=== PATIENT | female | born 1995 | race African-American/Black ===

== ENCOUNTER 2017-10-25 13:33 | Emergency (ER) | payer SELFPAY ==
[~2017-10-25] VITALS: Ht 165.1 cm; Wt 58.1 kg
[2017-10-25 14:23] LABS: BILIRUBIN,URINE NEGATIVE (NEG); CLARITY,URINE CLEAR; NITRITE,URINE NEGATIVE (NEG); PH,URINE 6.5; PROTEIN,URINE NEGATIVE (NEG-TRACE); UROBILINOGEN,URINE 0.2 mg/dL (0.2 mg/dL)
[2017-10-25] MEDS: IPRATRPIUM/ALBUTEROL 0.5/2.5MG 3 ML NEBU. NEB ONE (14:26)
[2017-10-25 14:27] LABS: BASO % 0 % (0-3); EOS % 0 % (0-3); HEMATOCRIT 42.5 % (36.0-47.0); HEMOGLOBIN 14.3 g/dL (12.0-15.5); LYMPH # 3.5 x10^3/uL (1.0-4.8); LYMPH % 35 % (24-48); MEAN CORPUSCULAR HEMOGLOBIN 30 pg (25-35); MEAN CORPUSCULAR HGB CONC 34 g/dL (31-37); MEAN CORPUSCULAR VOLUME 88 fL (79-100); MONO # 1.1 x10^3/uL (0.0-1.1); MONO % 11 % (0-9); NEUT # 5.4 x10^3uL (1.8-7.7); NEUT % 54 % (31-73); PLATELET COUNT 306 x10^3/uL (140-400); RED BLOOD COUNT 4.81 x10^6/uL (3.50-5.40); RED CELL DISTRIBUTION WIDTH 14.3 % (11.5-14.5); WHITE BLOOD COUNT 10.1 x10^3/uL (4.0-11.0)
[2017-10-25] MEDS: IV NORMAL SALINE 1000ML BAG 1,000 ML IV ONE (14:34)
[2017-10-25 14:37] LABS: BACTERIA,URINE FEW /HPF (0-FEW); COLOR,URINE STRAW; RBC,URINE 0 /HPF (0-2); SQUAMOUS EPITHELIAL CELL,UR FEW /LPF; WBC,URINE RARE /HPF (0-4)
[2017-10-25 14:39] LABS: CALCIUM 9.4 mg/dL (8.5-10.1); GFR 83.1; MAGNESIUM 1.7 mg/dL (1.8-2.4)
[2017-10-25 14:41] LABS: POTASSIUM 2.8 mmol/L (3.5-5.1)
--- NOTE | 2017-10-25 15:16 | EKG ---
[facility] [address] [place] [id number] Test Date: 2017-10-25 Test Time: 13:41:05 Pat Name: ANIL LEON Department: Room: Gender: F Balance Recesser: : 1995 Requested By: LURDES WASHBURN Order Number: [id number] Reading MD: Travis Sanders MD Measurements Intervals [place] Rate: 122 P: 139 IA: 110 QRS: 95 QRSD: 84 T: -6 QT: 354 QTc: 513 Interpretive Statements SINUS TACHYCARDIA Electronically Signed On 10-27-2017 12:09:14 CDT by Travis Sanders MD
[2017-10-25 15:46] LABS: AMPHETAMINE/METHAMPHETAMINE POS (NEG); BARBITURATES NEG (NEG); BENZODIAZEPINES NEG (NEG); CANNABINOIDS POS (NEG); COCAINE NEG (NEG); METHADONE NEG (NEG); OPIATES NEG (NEG); PHENCYCLIDINE NEG (NEG)
[2017-10-25] MEDS: POTASSIUM CHLORIDE 20 MEQ/15 ML ORAL LIQUID. PO ONE ×2 (15:50→17:44)
--- NOTE | 2017-10-25 16:02 | RAD ---
PORTABLE CHEST 1V Clinical indications: CHEST PAIN, DYSPNEA COMPARISON: None available. Findings: No acute lung infiltrate or pleural effusion or pulmonary edema or lung mass or pneumothorax is seen. The heart size, pulmonary vasculature, mediastinum and both clifton are unremarkable. Impression: No acute radiographic abnormality is seen. Electronically signed by: Reji Mo MD (10/25/2017 3:59 PM) [facility]
[2017-10-25] MEDS: MAGNESIUM SULFATE 2GM 50 ML IV ONE (16:40)
[2017-10-25 17:10] VITALS: BP 123/77
--- NOTE | 2017-10-25 17:27 | PHYS DOC ---
Past Medical History Past Medical History: Asthma Past Surgical History: Other Additional Past Surgical Histo: LEEP Additional Information: 0.75 PPD Alcohol Use: Occasionally Drug Use: None Adult General Chief Complaint Chief Complaint: ASTHMA HPI HPI Patient is a 21 year old female who presents with shortness of breath and fast heart beat. Patient states she began to have symptoms of palpitations and feeling that her heart was beating fast earlier today. This did cause her to have some anxiety and feel short of breath. She does have a prior history of asthma but she has not been wheezing. She currently does not have inhalers at home to use. She has not had a cough or fever. She has otherwise been at baseline health prior to onset of symptoms which was earlier this morning. The patient denies illicit drug use. Her last menstrual period was a week ago. She denies urinary symptoms or abdominal pain. Review of Systems Review of Systems Constitutional: Denies fever or chills Eyes: Denies change in visual acuity HENT: Denies nasal congestion Respiratory: Denies cough Cardiovascular: No additional information not addressed GI: Denies abdominal pain, nausea : Denies dysuria Musculoskeletal: Denies back pain Integument: Denies rash or skin lesions All other systems were reviewed and found to be within normal limits, except as documented in this note. Current Medications Current Medications Current Medications Medications (Trade) Dose Ordered Sig/Bella Start Time Stop Time Status Last Admin Dose Admin Albuterol/ Ipratropium (Duoneb) 3 ml 1X ONCE 10/25/17 14:00 10/25/17 14:01 DC 10/25/17 14:26 3 ML Lorazepam (Ativan) 1 mg 1X ONCE 10/25/17 15:30 10/25/17 15:31 DC 10/25/17 15:51 1 MG Magnesium Sulfate 50 ml @ 25 mls/hr 1X ONCE 10/25/17 16:00 10/25/17 17:59 10/25/17 16:40 25 MLS/HR Potassium Chloride (KCl Oral Soln) 40 meq 1X ONCE 10/25/17 17:15 10/25/17 17:16 DC Sodium Chloride 1,000 ml @ 1,000 mls/hr 1X ONCE 10/25/17 14:30 10/25/17 15:29 DC 10/25/17 14:34 1,000 MLS/HR Allergies Allergies Allergies Coded Allergies Type Severity Reaction Last Updated Verified No Known Drug Allergies 03/21/13 No Physical Exam Physical Exam Constitutional: Well developed, well nourished, no acute distress, non-toxic appearance. [] HENT: Normocephalic, atraumatic, bilateral external ears normal, oropharynx moist, no oral exudates, nose normal. [] Eyes: PERRLA, EOMI, conjunctiva normal, no discharge. [] Neck: Normal range of motion, no tenderness, supple, no stridor. [] Cardiovascular:Heart rate regular rhythm, no murmur [] Lungs & Thorax: Bilateral breath sounds clear to auscultation [] Abdomen: Bowel sounds normal, soft, no tenderness, no masses, no pulsatile masses. [] Skin: Warm, dry, no erythema, no rash. [] Back: No tenderness, no CVA tenderness. [] Extremities: No tenderness, no cyanosis, no clubbing, ROM intact, no edema. [] Neurologic: Alert and oriented X 3, normal motor function, normal sensory function, no focal deficits noted. [] Psychologic: Affect normal, judgement normal, mood normal. [] Current Patient Data Vital Signs Vital Signs Date Time Temp Pulse Resp B/P (MAP) Pulse Ox O2 Delivery O2 Flow Rate FiO2 10/25/17 14:27 Room Air 10/25/17 13:37 98.3 117 24 163/88 (113) 100 98.3 Lab Values Laboratory Tests Test 10/25/17 14:10 10/25/17 14:14 10/25/17 14:16 Urine Collection Type Void Urine Color Straw Urine Clarity Clear Urine pH 6.5 Urine Specific Starks <=1.005 Urine Protein Negative mg/dL (NEG-TRACE) Urine Glucose (UA) Negative mg/dL (NEG) Urine Ketones (Stick) Negative mg/dL (NEG) Urine Blood Negative (NEG) Urine Nitrite Negative (NEG) Urine Bilirubin Negative (NEG) Urine Urobilinogen Dipstick 0.2 mg/dL (0.2 mg/dL) Urine Leukocyte Esterase Negative (NEG) Urine RBC 0 /HPF (0-2) Urine WBC Rare /HPF (0-4) Urine Squamous Epithelial Cells Few /LPF Urine Bacteria Few /HPF (0-FEW) Urine Opiates Screen Neg (NEG) Urine Methadone Screen Neg (NEG) Urine Barbiturates Neg (NEG) Urine Phencyclidine Screen Neg (NEG) Urine Amphetamine/Methamphetamine Pos (NEG) Urine Benzodiazepines Screen Neg (NEG) Urine Cocaine Screen Neg (NEG) Urine Cannabinoids Screen Pos (NEG) Urine Ethyl Alcohol Pos (NEG) POC Urine HCG, Qualitative Hcg negative (Negative) White Blood Count 10.1 x10^3/uL (4.0-11.0) Red Blood Count 4.81 x10^6/uL (3.50-5.40) Hemoglobin 14.3 g/dL (12.0-15.5) Hematocrit 42.5 % (36.0-47.0) Mean Corpuscular Volume 88 fL (79-100) Mean Corpuscular Hemoglobin 30 pg (25-35) Mean Corpuscular Hemoglobin Concent 34 g/dL (31-37) Red Cell Distribution Width 14.3 % (11.5-14.5) Platelet Count 306 x10^3/uL (140-400) Neutrophils (%) (Auto) 54 % (31-73) Lymphocytes (%) (Auto) 35 % (24-48) Monocytes (%) (Auto) 11 % (0-9) H Eosinophils (%) (Auto) 0 % (0-3) Basophils (%) (Auto) 0 % (0-3) Neutrophils # (Auto) 5.4 x10^3uL (1.8-7.7) Lymphocytes # (Auto) 3.5 x10^3/uL (1.0-4.8) Monocytes # (Auto) 1.1 x10^3/uL (0.0-1.1) Eosinophils # (Auto) 0.0 x10^3/uL (0.0-0.7) Basophils # (Auto) 0.0 x10^3/uL (0.0-0.2) D-Dimer (Siri) < 0.27 ug/mlFEU Sodium Level 138 mmol/L (136-145) Potassium Level 2.8 mmol/L (3.5-5.1) *L Chloride Level 99 mmol/L (98-107) Carbon Dioxide Level 21 mmol/L (21-32) Anion Gap 18 (6-14) H Blood Urea Nitrogen 7 mg/dL (7-20) Creatinine 1.0 mg/dL (0.6-1.0) Estimated GFR (Cockcroft-Gault) 83.1 Glucose Level 88 mg/dL (70-99) Calcium Level 9.4 mg/dL (8.5-10.1) Magnesium Level 1.7 mg/dL (1.8-2.4) L Laboratory Tests 10/25/17 14:16 Laboratory Tests 10/25/17 14:16 EKG EKG Sinus Tachy, no STEMI Interpretation Time: 13:45 Radiology/Procedures Radiology/Procedures No acute findings on CXR Course & Med Decision Making Course & Med Decision Making Pertinent Labs and Imaging studies reviewed. (See chart for details) Patient was evaluated in the emergency department for some dyspnea symptoms. She had good air movement in all voss and no wheezes and her chest x-ray was normal. She was given an albuterol treatment because of her history of asthma although this did not significantly change her symptoms. She was tachycardic with a heart rate in the 120s and 130s on arrival. She was given 1 L of fluid which did substantially reduce her heart rate into the low 100s. She was also given 2 doses of Ativan during the ER course which did resolve her tachycardia. Her lab panel was remarkable for low magnesium and low potassium. These were both repleted in the emergency department. The patient was noted to have positive urine drug screen for methamphetamine despite that she denied this earlier in the visit. Plan is for discharge to home. Patient is feeling much improved. She is accompanied by friends who can drive her home today. Dragon Disclaimer Dragon Disclaimer This electronic medical record was generated, in whole or in part, using a voice recognition dictation system. Departure Departure Referrals: GENTRY BELL MD (PCP) LURDES WASHBURN DO Oct 25, 2017 17:27
== END 2017-10-25 18:14 | disposition home or self-care (01) ==
LOC: ER 13:33
DX: R06.02 Shortness of breath (principal); R00.2 Palpitations; J45.909 Unspecified asthma, uncomplicated; F17.200 Nicotine dependence, unspecified, uncomplicated; F41.9 Anxiety disorder, unspecified
CPT/HCPCS: 36415; 71045; 80048; 80307; 81001; 81025; 83735; 85025; 85379; 93005; 94640; 96365; 96375; 96376; 99285; J2060; J3475; J7030; J7620; G0479

== ENCOUNTER 2018-07-07 08:59 | Emergency (ER) | payer OTHER ==
[~2018-07-07] VITALS: Ht 165.1 cm; Wt 56.7 kg
[2018-07-07 09:07] VITALS: BP 138/76
[2018-07-07] MEDS ORDERED: SULF1TAB24 PO (09:20)
--- NOTE | 2018-07-07 09:20 | PHYS DOC ---
Past Medical History Past Medical History: No Pertinent History (TRAN RECINOS APRN) Past Surgical History: Other Additional Past Surgical Histo: CERVICAL CA, LEEP (TRAN RECINOS APRN) Additional Information: 1/2 PACK A DAY Alcohol Use: Rarely Drug Use: None (TRAN RECINOS APRN) Adult General Chief Complaint Chief Complaint: INSECT BITE HPI HPI Patient is a 22 year old female who presents to the ED complaining of what she believes is a spider bite on the right forearm that she noted on last week. Patient denies any drainage from the area. Denies any fever. (TRAN RECINOS APRN) Review of Systems Review of Systems Constitutional: Denies fever or chills [] Musculoskeletal: Denies back pain or joint pain [] Integument: spider bite on the right forearm Neurologic: Denies headache, focal weakness or sensory changes [] All other systems were reviewed and found to be within normal limits, except as documented in this note. (TRAN RECINOS APRN) Current Medications Current Medications Current Medications Medications (Trade) Dose Ordered Sig/Bella Start Time Stop Time Status Last Admin Dose Admin Diphtheria/ Tetanus/Acell Pertussis (Boostrix) 0.5 ml ONCE ONCE 07/07/18 09:30 07/07/18 09:31 DC 07/07/18 09:25 0.5 ML (BEVERLY HOFFMAN MD) Allergies Allergies Allergies Coded Allergies Type Severity Reaction Last Updated Verified No Known Drug Allergies 03/21/13 No (BEVERLY HOFFMAN MD) Physical Exam Physical Exam Constitutional: Well developed, well nourished, no acute distress, non-toxic appearance. [] Skin: Does aspect of the right proximal forearm with an indurated area approximately 1 x 1 cm. The area is firm and tender to touch warm with slight erythema. No fluctuance. There is a scab in the middle of the area. Back: No tenderness, no CVA tenderness. [] Extremities: No tenderness, no cyanosis, no clubbing, ROM intact, no edema. [] Neurologic: Alert and oriented X 3, normal motor function, normal sensory function, no focal deficits noted. [] Psychologic: Affect normal, judgement normal, mood normal. [] (TRAN RECINOS APRN) Current Patient Data Vital Signs Vital Signs Date Time Temp Pulse Resp B/P (MAP) Pulse Ox O2 Delivery O2 Flow Rate FiO2 07/07/18 09:07 98.0 88 16 138/76 (96) 99 Room Air 98.0 (BEVERLY HOFFMAN MD) EKG EKG [] (TRAN RECINOS APRN) Radiology/Procedures Radiology/Procedures [] (TRAN RECINOS APRN) Course & Med Decision Making Course & Med Decision Making Pertinent Labs and Imaging studies reviewed. (See chart for details) This is a 22-year-old female patient presenting to the ED today with an abscess of the right forearm, abscess not ready to drain. Will be discharged with Bactrim. Instructed to keep the area clean and dry. Tylenol or Motrin for pain or fever. Tetanus updated. (TRAN RECINOS APRN) Course & Med Decision Making This patient was seen by an GRACE. I did not see or treat the patient unless otherwise specified. (BEVERLY HOFFMAN MD) Dragon Disclaimer Dragon Disclaimer This electronic medical record was generated, in whole or in part, using a voice recognition dictation system. (TRAN RECINOS APRN) Departure Departure Impression: Primary Impression: Abscess of forearm, right Disposition: HOME, SELF-CARE Condition: STABLE Referrals: EGNTRY BELL MD (PCP) Follow-up in 1-2 weeks Patient Instructions: Abscess Additional Instructions: You were seen in the emergency room for an abscess of the right forearm. Keep the area clean and dry. Please apply warm compresses to the area twice a day. Follow-up with your doctor in 1-2 weeks as needed, come back to the ED at any point symptoms worsen. Scripts Sulfamethoxazole/Trimethoprim (BACTRIM DS TABLET) 1 Each Tablet 1 TAB PO BID, #20 TAB Prov: TRAN RECINOS APRN 07/07/18 TRAN RECINOS APRN July 07, 2018 09:20 BEVERLY HOFFMAN MD July 07, 2018 17:07
[2018-07-07] MEDS ORDERED: DIPHTH,PERTUSS(ACELL),TET TOX 0.5 ML DISP.SYRIN. VAX IM ONE (09:30)
== END 2018-07-07 09:29 | disposition home or self-care (01) ==
LOC: ER 08:59
DX: L02.413 Cutaneous abscess of right upper limb (principal); F17.200 Nicotine dependence, unspecified, uncomplicated; W57.XXXA Bitten or stung by nonvenomous insect and other nonvenomous arthropods, initial encounter; Y93.89 Activity, other specified; Y92.89 Other specified places as the place of occurrence of the external cause; Y99.8 Other external cause status
CPT/HCPCS: 90471; 90715; 99283

== ENCOUNTER 2018-07-21 14:40 | Emergency (ER) | payer OTHER ==
[~2018-07-21] VITALS: Ht 165.1 cm; Wt 56.7 kg
[~2018-07-21 14:40] MED LIST: SULF1TAB24 PO
[2018-07-21 15:15] VITALS: BP 126/77
--- NOTE | 2018-07-21 15:31 | PHYS DOC ---
Past Medical History Past Medical History: No Pertinent History Past Surgical History: Other Additional Past Surgical Histo: CERVICAL CA, LEEP Alcohol Use: Rarely Drug Use: None Adult General Chief Complaint Chief Complaint: SORE THROAT HPI HPI Patient is a 22 year old female presents to ED complaining of sore throat 2 days ago. Patient states that she's had a sore throat and it seems to be getting worse. States that it comes and goes. Associated symptoms include congestion. Denies throat swelling, lip swelling, tongue swelling, chest pain, shortness of breath, cough, fever, headache or neck pain. Review of Systems Review of Systems Constitutional: Denies fever or chills [] Eyes: Denies change in visual acuity, redness, or eye pain [] HENT: Complains of sore throat and congestion. [] Respiratory: Denies cough or shortness of breath [] Cardiovascular: No additional information not addressed in HPI [] GI: Denies abdominal pain, nausea, vomiting, bloody stools or diarrhea [] : Denies dysuria or hematuria [] Musculoskeletal: Denies back pain or joint pain [] Integument: Denies rash or skin lesions [] Neurologic: Denies headache, focal weakness or sensory changes [] All other systems were reviewed and found to be within normal limits, except as documented in this note. Allergies Allergies Allergies Coded Allergies Type Severity Reaction Last Updated Verified No Known Drug Allergies 03/21/13 No Physical Exam Physical Exam Constitutional: Well developed, well nourished, no acute distress, non-toxic appearance. [] HENT: Normocephalic, atraumatic, bilateral external ears normal, oropharynx moist, no oral exudates, nose normal. mild pharyngeal erythema. [] Eyes: PERRLA, EOMI, conjunctiva normal, no discharge. [] Neck: Normal range of motion, no tenderness, supple, no stridor. [] Cardiovascular:Heart rate regular rhythm, no murmur [] Lungs & Thorax: Bilateral breath sounds clear to auscultation [] Abdomen: Bowel sounds normal, soft, no tenderness, no masses, no pulsatile masses. [] Skin: Warm, dry, no erythema, no rash. [] Back: No tenderness, no CVA tenderness. [] Extremities: No tenderness, no cyanosis, no clubbing, ROM intact, no edema. [] Neurologic: Alert and oriented X 3, normal motor function, normal sensory function, no focal deficits noted. [] Psychologic: Affect normal, judgement normal, mood normal. [] Current Patient Data Vital Signs Vital Signs Date Time Temp Pulse Resp B/P (MAP) Pulse Ox O2 Delivery O2 Flow Rate FiO2 07/21/18 15:15 98.9 68 16 126/77 (93) 98 Room Air 98.9 EKG EKG [] Radiology/Procedures Radiology/Procedures [] Course & Med Decision Making Course & Med Decision Making Pertinent Labs and Imaging studies reviewed. (See chart for details) []Strep test negative. Discussed symptomatic treatment and follow-up. Provided contact information/education for follow-up and discussed reasons to return to the ED. Patient understands and agrees with plan. Dragon Disclaimer Dragon Disclaimer This electronic medical record was generated, in whole or in part, using a voice recognition dictation system. Departure Departure Impression: Primary Impression: Pharyngitis Disposition: 01 HOME, SELF-CARE Condition: STABLE Referrals: GENTRY BELL MD (PCP) Patient Instructions: Viral and Bacterial Pharyngitis Scripts Prednisone (PREDNISONE ) 10 Mg Tablet 30 MG PO DAILY for 4 Days, #12 TAB 0 Refills Prov: JEROME BOONE 07/21/18 JEROME BOONE July 21, 2018 15:31
[2018-07-21] MEDS ORDERED: PRED-220 PO (15:37)
== END 2018-07-21 15:41 | disposition home or self-care (01) ==
LOC: ER 14:40
DX: J02.9 Acute pharyngitis, unspecified (principal); R09.81 Nasal congestion
CPT/HCPCS: 87070; 87880; 99283

== ENCOUNTER 2019-01-06 10:27 | Emergency (ER) | payer SELFPAY ==
[~2019-01-06] VITALS: Ht 165.1 cm; Wt 56.7 kg
[~2019-01-06 10:27] MED LIST changes: +PRED-220 PO
[2019-01-06] MEDS ORDERED: IV NORMAL SALINE 1000ML BAG 1,000 ML IV ONE (11:00)
[2019-01-06 11:13] LABS: BASO % 0 % (0-3); EOS % 0 % (0-3); HEMATOCRIT 36.4 % (36.0-47.0); LYMPH # 1.3 x10^3/uL (1.0-4.8); LYMPH % 15 % (24-48); MEAN CORPUSCULAR HEMOGLOBIN 28 pg (25-35); MEAN CORPUSCULAR HGB CONC 33 g/dL (31-37); MEAN CORPUSCULAR VOLUME 85 fL (79-100); MONO # 0.6 x10^3/uL (0.0-1.1); MONO % 7 % (0-9); NEUT # 7.2 x10^3/uL (1.8-7.7); NEUT % 78 % (31-73); PLATELET COUNT 243 x10^3/uL (140-400); RED BLOOD COUNT 4.27 x10^6/uL (3.50-5.40); RED CELL DISTRIBUTION WIDTH 15.3 % (11.5-14.5); WHITE BLOOD COUNT 9.2 x10^3/uL (4.0-11.0)
[2019-01-06 11:21] LABS: PROTHROMBIN TIME PATIENT 12.7 SEC (11.7-14.0)
[2019-01-06 11:22] LABS: BILIRUBIN,URINE NEGATIVE (NEG); CLARITY,URINE CLEAR; COLOR,URINE YELLOW; NITRITE,URINE NEGATIVE (NEG); PROTEIN,URINE NEGATIVE (NEG-TRACE)
[2019-01-06 11:27] LABS: CALCIUM 8.9 mg/dL (8.5-10.1); CREATININE 0.8 mg/dL (0.6-1.0); GFR 105.8; POTASSIUM 3.5 mmol/L (3.5-5.1)
--- NOTE | 2019-01-06 11:29 | RAD ---
CT HEAD WO CONTRAST Clinical indications: Forehead swelling after recent sutures. COMPARISON: None available. Technique: Noncontrast axial cross sectional scanning of the head was performed. PQRS compliance Statement One or more of the following individualized dose reduction techniques were utilized for this study: 1. Automated exposure control 2. Adjustment of the mA and/or kV according to patient size 3. Use of iterative reconstruction technique Findings: No acute intracranial hemorrhage or midline shift or mass-effect or hydrocephalus or extra-axial fluid collection is seen. No focal hypodense area or sulci effacement is seen to indicate an acute infarct or edema radiographically. No skull fracture or pneumocephalus is seen. No opacification of the mastoid sinuses or the middle ear cavities or the paranasal sinuses is seen. The maxillary sinuses are not completely seen in this study. There is left forehead soft tissue swelling. There is a question of a hypodense central area. Therefore, small subcutaneous abscess is possible although difficult to determine without IV contrast. Therefore, sonography may be helpful. There is a small bubble of air consistent with a recent laceration injury which has been sutured. IMPRESSION: No acute intracranial abnormality is seen. Left forehead swelling. Possible small abscess. Recommend sonogram of the left forehead area. Electronically signed by: Reji Mo MD (01/06/2019 11:26 AM) [place] [id number]
[2019-01-06] MEDS ORDERED: MORPHINE SULFATE 4 MG/ML VIAL. IV ONE (11:30)
[2019-01-06] MEDS ORDERED: ONDANSETRON PF 4 MG/2 ML VIAL. IV ONE (11:30)
[2019-01-06 11:31] LABS: AMPHETAMINE/METHAMPHETAMINE NEG (NEG); BARBITURATES POS (NEG); BENZODIAZEPINES NEG (NEG); CANNABINOIDS POS (NEG); COCAINE NEG (NEG); METHADONE NEG (NEG); OPIATES NEG (NEG); PHENCYCLIDINE NEG (NEG)
[2019-01-06 11:32] LABS: SQUAMOUS EPITHELIAL CELL,UR MOD /LPF
[2019-01-06 11:35] LABS: ALBUMIN 3.6 g/dL (3.4-5.0); ALBUMIN/GLOBULIN RATIO 0.9 (1.0-1.7); MAGNESIUM 1.5 mg/dL (1.8-2.4); TOTAL BILIRUBIN 0.3 mg/dL (0.2-1.0); TOTAL PROTEIN 7.8 g/dL (6.4-8.2)
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
[2019-01-06 11:51] LABS: BACTERIA,URINE FEW /HPF (0-FEW); TRICHOMONAS,URINE PRESENT
[2019-01-06 12:00] VITALS: BP 124/77
[2019-01-06] MEDS ORDERED: MORPHINE SULFATE 10 MG/ML VIAL. IV ONE (12:00)
[2019-01-06] MEDS ORDERED: CEPH500C PO (12:11)
[2019-01-06] MEDS ORDERED: METR500T PO (12:11)
[2019-01-06] MEDS ORDERED: cefTRIAXone IM 250 MG VIAL IM ONE (12:30)
[2019-01-06] MEDS ORDERED: AZITHROMYCIN 250 MG TABLET. PO ONE (12:30)
== END 2019-01-06 12:35 | disposition home or self-care (01) ==
LOC: ER 10:27
DX: S01.81XD Laceration without foreign body of other part of head, subsequent encounter (principal); A59.03 Trichomonal cystitis and urethritis; Z20.2 Contact with and (suspected) exposure to infections with a predominantly sexual mode of transmission; R51 Headache; V49.9XXD Car occupant (driver) (passenger) injured in unspecified traffic accident, subsequent encounter
CPT/HCPCS: 36415; 70450; 80053; 80307; 81001; 81025; 83605; 83735; 84484; 85025; 85610; 85730; 87491; 87591; 96361; 96372; 96374; 96375; 99285; J0696; J2270; J2405; J7030; Q0144

== ENCOUNTER 2019-01-09 16:51 | Emergency (ER) | payer SELFPAY ==
[~2019-01-09] VITALS: Ht 165.1 cm; Wt 57.2 kg
[~2019-01-09 16:51] MED LIST changes: +CEPH500C PO; +METR500T PO
[2019-01-09 17:15] VITALS: BP 150/88
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
== END 2019-01-09 17:48 | disposition home or self-care (01) ==
LOC: ER 16:51
DX: S01.81XD Laceration without foreign body of other part of head, subsequent encounter (principal); X58.XXXD Exposure to other specified factors, subsequent encounter
CPT/HCPCS: 99281

== ENCOUNTER → 2019-04-28 | Outpatient (CLI) | payer MEDICAID ==
--- NOTE | 2019-04-28 16:33 | RAD ---
Transabdominal and transvaginal sonography of the pelvis-OB ultrasound study less than 14 weeks. Clinical indications: Uncertain dates. FINDINGS: Uterus is anteverted in position. Within the mid body of the uterus, gestational sac is seen with a yolk sac. No pole or heartbeat is seen. Therefore, transvaginal sonography will be performed. No adnexal mass is seen. No free fluid is evident. Transvaginal sonography: Within the gestational sac, a yolk sac is seen but no heartbeat or pole is seen yet. Therefore, the gestation is approximately 5 weeks. The right ovary measures 1.6 cm and 2.6 cm and 1.6 cm in size and is normal. Color Doppler flow is seen within the right ovary. The left ovary measures 1.5 cm and 2.8 cm and 1.3 cm in size and is normal. Color Doppler flow an seen within left ovary. No adnexal mass or free fluid is seen. IMPRESSION: Approximate 5 week intrauterine gestational sac. Recommend correlation with serial quantitative beta-hCG studies. Electronically signed by: Reji Mo MD (04/28/2019 4:30 PM) [facility]
== END | disposition home or self-care (01) ==
LOC: US 13:24
PROVIDERS: ATTEND Family Medicine
DX: Z34.91 Encounter for supervision of normal pregnancy, unspecified, first trimester (principal); Z3A.01 Less than 8 weeks gestation of pregnancy
CPT/HCPCS: 76801; 76817

== ENCOUNTER → 2019-05-17 | Outpatient (CLI) | payer MEDICAID ==
--- NOTE | 2019-05-17 14:30 | RAD ---
Examination: OB <14 WKS W/TV History: Spotting, unsure of dates Comparison/Correlation: 04/28/2019 ultrasound Findings: Transabdominal and transvaginal OB ultrasound exam was performed. Transvaginal technique was utilized to better assess the adnexal structures. Uterus measures 11 cm x 6 by centimeter. Myometrium is unremarkable. Intrauterine gestational sac is irregular in shape within the lower aspect of the uterine cavity. A pole is present measuring 0.28 cm corresponding to 5 week 6 day gestation although no heart rate is evident. Yolk sac is evident. No subchronic hemorrhage. The left ovary is obscured by bowel gas. Right ovary measures 3.1 cm x 1.90 1.1 cm. Normal ovarian flow is evident. There is no pelvic free fluid. Impression: Intrauterine gestation is present without a detectable heart rate. The gestational sac is abnormal in location and morphology in the interval. Findings are concerning for nonviable gestation. No adnexal mass identified but the left ovary is not visualized. Consider continued interval follow-up ultrasound exam and serial beta hCG. Electronically signed by: Betito Piedra MD (05/17/2019 2:26 PM) [id number]
== END | disposition home or self-care (01) ==
LOC: US 13:28
PROVIDERS: ATTEND Family Medicine
DX: Z34.91 Encounter for supervision of normal pregnancy, unspecified, first trimester (principal); Z3A.00 Weeks of gestation of pregnancy not specified
CPT/HCPCS: 76801; 76817

== ENCOUNTER 2019-05-20 06:35 | Day surgery (SDC) | payer MEDICAID ==
[~2019-05-20] VITALS: Ht 165.1 cm; Wt 59.9 kg
[~2019-05-20 06:35] MED LIST changes: +DOXYCYCLINE HYCLATE 100 MG in IV DEXTROSE 5% 100ML 100 ML IV ONE
[2019-05-20] MEDS ORDERED: ONDANSETRON PF 4 MG/2 ML VIAL. IV PRN (07:00)
[2019-05-20] MEDS ORDERED: MORPHINE SULFATE 2 MG/ML VIAL. IV PRN (07:00)
[2019-05-20] MEDS ORDERED: IV RINGERS,LACTATED 1000ML 1,000 ML IV SCH (07:00)
[2019-05-20] MEDS ORDERED: HYDROmorphone 2 MG/ML VIAL IV PRN (07:00)
[2019-05-20] MEDS ORDERED: PROCHLORPERAZINE 10 MG/2 ML VIAL. IV PRN (07:00)
[2019-05-20] MEDS ORDERED: LIDOCAINE 1% PF 2 ML VIAL. ID PRN (07:00)
[2019-05-20] MEDS ORDERED: fentaNYL PF VIAL 100 MCG/2 ML VIAL IV PRN ×2 (07:00)
[2019-05-20] MEDS ORDERED: FAMOTIDINE 20 MG/2 ML VIAL ONE (07:20)
[2019-05-20] MEDS ORDERED: ONDANSETRON PF 4 MG/2 ML VIAL. ONE (07:20)
[2019-05-20] MEDS ORDERED: DEXAMETHASONE SOD PHOS 4 MG/ML VIAL ONE (07:20)
[2019-05-20] MEDS ORDERED: LIDOCAINE 2% PF 5 ML VIAL. ONE (07:20)
[2019-05-20] MEDS ORDERED: PROPOFOL 20 ML IV ONE (07:20)
[2019-05-20] MEDS ORDERED: MIDAZOLAM HCL/PF 2 MG/2 ML VIAL. ONE (07:20)
[2019-05-20 07:35] LABS: BASO % 0 % (0-3); EOS # 0.1 x10^3/uL (0.0-0.7); EOS % 1 % (0-3); LYMPH % 30 % (24-48); MEAN CORPUSCULAR HEMOGLOBIN 28 pg (25-35); MEAN CORPUSCULAR HGB CONC 33 g/dL (31-37); MEAN CORPUSCULAR VOLUME 86 fL (79-100); MONO # 0.5 x10^3/uL (0.0-1.1); MONO % 8 % (0-9); NEUT # 3.9 x10^3/uL (1.8-7.7); NEUT % 61 % (31-73); PLATELET COUNT 203 x10^3/uL (140-400); RED BLOOD COUNT 2.28 x10^6/uL (3.50-5.40); RED CELL DISTRIBUTION WIDTH 19.7 % (11.5-14.5); WHITE BLOOD COUNT 6.5 x10^3/uL (4.0-11.0)
[2019-05-20 07:38] LABS: HEMATOCRIT 19.7 % (36.0-47.0); HEMOGLOBIN 6.5 g/dL (12.0-15.5)
[2019-05-20] MEDS ORDERED: fentaNYL PF VIAL 100 MCG/2 ML VIAL ONE ×2 (08:00→08:51)
[2019-05-20] MEDS ORDERED: SEVOFLURANE 31 TO 60 MINUTES. IH ONE (08:20)
[2019-05-20] MEDS ORDERED: DOXYCYCLINE HYCLATE 100 MG TABLET PO ONE (08:30)
[2019-05-20] MEDS ORDERED: OXYC1TAB15 PO ×2 (08:40→08:58)
[2019-05-20] MEDS ORDERED: IBUP-1060 PO (08:40)
[2019-05-20] MEDS ORDERED: FERR325T14 PO (08:40)
--- NOTE | 2019-05-20 09:18 | EKG ---
[facility] [address] [place] [address] Test Date: 2019-05-20 Test Time: 09:14:01 Pat Name: DAISY LEON Department: Room: Gender: F Product Management Intern: ELAINE : 1995 Requested By: RIAZ QUINTERO Order Number: [id number] Reading MD: Measurements Intervals [place] Rate: 116 P: 90 ND: 128 QRS: 90 QRSD: 80 T: 15 QT: 324 QTc: 456 Interpretive Statements SINUS TACHYCARDIA NO SPECIFIC ECG ABNORMALITIES RI6.02 Compared to ECG 10/25/2017 13:41:05 No significant changes
--- NOTE | 2019-05-20 09:55 | PDOC4 ---
OPERATIVE NOTE: PreOp Dx: 1.) Missed AB, 2.) VB, 3.) Anemia - Hgb 6.5, 4.) H/o dysplasia - h/o LEEP, 5.) Asthma PostOp Dx: same Procedure: Suction D&C Surgeon: Fatimah Zayas Anesthesia: GETA EBL: minimal Specimen: POC Complications: None GENTRY ZAYAS MD May 20, 2019 09:55
[2019-05-20 10:34] VITALS: BP 119/64
[2019-05-20 10:43] VITALS: BP 136/58
[2019-05-20 11:00] VITALS: BP 124/63
--- NOTE | 2019-05-20 11:01 | OP ---
DATE OF SURGERY: 05/20/2019 PREOPERATIVE DIAGNOSES: 1. Missed approximately 5 weeks and 6 days in size. 2. Vaginal bleeding. 3. Anemia with hemoglobin of 6.5. 4. History of dysplasia with a history of a LEEP. 5. Asthma. POSTOPERATIVE DIAGNOSES: 1. Missed approximately 5 weeks and 6 days in size. 2. Vaginal bleeding. 3. Anemia with hemoglobin of 6.5. 4. History of dysplasia with a history of a LEEP. 5. Asthma. PROCEDURE: Suction dilation and curettage. SURGEON: Angel Luis Zayas M.D. ANESTHESIA: General endotracheal intubation. ESTIMATED BLOOD LOSS: Minimal. SPECIMENS REMOVED: Products of conception. COMPLICATIONS: None. FINDINGS: Products of conception. INDICATIONS: The patient is a 23-year-old 3, para 1-0-1-1, who presented to the office a day prior with a probable missed AB, and bleeding. The patient had underwent an ultrasound 2 weeks prior on 04/28/2019, which revealed a gestational sac measuring approximately 5 weeks in size, they could not see a pole. The ultrasound was repeated on 05/16 revealing an intrauterine gestation without any detectable heart rate. The gestational sac was abnormal in location and morphology. Since that ultrasound, the patient had had heavy bleeding, but had stopped the day prior. The patient was counseled on treatment options, the patient elected for a suction D and C, due to the symptomatic nature of her blood loss. Of note, the patient's hemoglobin at her new OB visit was 13.8 on 05/06/2019. The morning of the operation, the patient's hemoglobin was found to be 6.5. The decision was made after the procedure that the patient would receive 1 unit transfusion. PROCEDURE: The patient was taken to the operating room where general endotracheal intubation was placed without difficulty. A bedside ultrasound was performed to examine the uterine contents. There was not much products of conception seen in the uterus. After the patient was prepped and draped in normal sterile fashion, a speculum was placed to visualize the cervix. A single-tooth tenaculum was then placed on the anterior lip of the cervix. At that point, it was noted that a significant amount of blood clot/products of conception were at her external cervical os. This was then grabbed with a ring forceps and sent to pathology. At that point, the cervix was sufficiently dilated to allow for an 8 mm curette. Suction curettage was then advanced to the uterine fundus. The suction was then activated and the curette was rotated to clear all products of conception. Minimal amount of products of conception returned, but there was some blood. At that point, a sharp curetting was performed until gritty texture was felt in all four quadrants. Ultrasound was performed revealing minimal uterine contents. There was still little bit of bleeding. Since the cervix was dilated, passed the point of needing for an 8 mm suction curette was then placed. Good hemostasis was noted after an additional two rotations were performed. At that point, the tenaculum was removed. Good hemostasis was noted. The patient was brought to the recovery room and 200 mg of doxycycline was given postoperatively. ANGEL LUIS ZAYAS MD DR: WILMER/ravindra JOB#: [id number] / [id number] SMITA
[2019-05-20 11:30] VITALS: BP 137/75
[2019-05-20 12:00] VITALS: BP 132/67
[2019-05-20 12:30] VITALS: BP 149/80
--- NOTE | 2019-05-23 15:07 | PATHOLOGY ---
[facility] Accession Number: [id number] . 01 Material submitted: . product of conception - PRODUCTS OF CONCEPTION . 01 Clinical history: . Missed . . 02 Diagnosis: Uterine contents, suction D and C: - Products of conception, comprised of focally degenerating immature chorionic villi with associated hemorrhage, and decidual tissue showing focal necrosis, hemorrhage, and acute inflammation. (JPM:[facility] 05/23/2019) P 05/23/2019 1230 Local . 02 Electronically signed: . Lukas Gray MD, Pathologist NPI- [id number] . 01 Gross description: . Received in formalin labeled "Rolls, Luisa, products of conception" is a 76 g, 10.6 x 9.7 x 4.2 cm aggregate of acosta-brown friable soft tissue fragments and clotted blood material. No parts are identified. Director Of Grants tissue is submitted in cassettes A1-A3. ([facility]; 05/22/2019) [facility] 05/22/2019 1052 Local . 02 Pathologist provided ICD-10: O02.1, O02.89 . 02 CPT . 311140 Specimen Comment: A courtesy copy of this report has been sent to [phone], [phone] Specimen Comment: [id number] Specimen Comment: Report sent to / DR BELL Performed at: 01 [facility] [address], [place] [id number] MD Rex Marroquin MD Phone: [phone] Performed at: [address] [facility] [address] [place], [place] [id number] MD Lukas Gray MD Phone: [phone]
== END 2019-05-20 13:40 | disposition home or self-care (01) ==
LOC: SURG 06:35
PROVIDERS: ATTEND Obstetrics & Gynecology
DX: O02.1 Missed abortion (principal); D64.9 Anemia, unspecified; J45.909 Unspecified asthma, uncomplicated; Z79.899 Other long term (current) drug therapy
CPT/HCPCS: 36415; 59820; 81025; 84702; 85025; 86850; 86900; 86901; 86920; 93005; A7015; C1769; J1100; J2250; J2405; J2704; J3010; J3490; J7060; P9016

== ENCOUNTER 2020-04-02 12:58 | Emergency (ER) | payer MEDICAID ==
[~2020-04-02] VITALS: Ht 165.1 cm; Wt 62.0 kg
[~2020-04-02 12:58] MED LIST changes: -DOXYCYCLINE HYCLATE 100 MG in IV DEXTROSE 5% 100ML 100 ML IV ONE; +FERR325T14 PO; +IBUP-1060 PO; +OXYC1TAB15 PO
[2020-04-02 13:22] VITALS: BP 122/59
[2020-04-02 13:35] LABS: BILIRUBIN,URINE NEGATIVE (NEG); CLARITY,URINE CLEAR; COLOR,URINE YELLOW; NITRITE,URINE NEGATIVE (NEG); PH,URINE 6.5 (<5.0-8.0); PROTEIN,URINE NEGATIVE (NEG-TRACE)
[2020-04-02 13:59] LABS: RBC,URINE OCC /HPF (0-2); WBC,URINE OCC /HPF (0-4)
[2020-04-02 14:00] LABS: AMORPHOUS SEDIMENT,UR PRESENT /HPF; BACTERIA,URINE 0 /HPF (0-FEW)
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
== END 2020-04-02 15:33 | disposition home or self-care (01) ==
LOC: ER 12:58
DX: O26.891 Other specified pregnancy related conditions, first trimester (principal); G89.11 Acute pain due to trauma; M54.5 Low back pain; Z87.891 Personal history of nicotine dependence; Z98.890 Other specified postprocedural states; V98.8XXA Other specified transport accidents, initial encounter; Y93.89 Activity, other specified; Y92.413 State road as the place of occurrence of the external cause; Y99.8 Other external cause status; Z3A.14 14 weeks gestation of pregnancy
CPT/HCPCS: 76815; 81001; 81025; 99284

== ENCOUNTER 2021-04-23 22:24 | Observation (INO) | payer MEDICAID, OTHER ==
[~2021-04-23] VITALS: Ht 165.1 cm; Wt 60.0 kg
[2021-04-23] MEDS ORDERED: MORPHINE SULFATE 4 MG/ML INJ. IV/SQ PRN (23:30)
[2021-04-23] MEDS ORDERED: IV NORMAL SALINE 1000ML BAG 1,000 ML IV ONE (23:45)
[2021-04-23 23:51] LABS: BASO % 0 % (0-3); EOS % 0 % (0-3); HEMOGLOBIN 13.9 g/dL (12.0-15.5); LYMPH % 12 % (24-48); MEAN CORPUSCULAR HEMOGLOBIN 30 pg (25-35); MEAN CORPUSCULAR HGB CONC 33 g/dL (31-37); MEAN CORPUSCULAR VOLUME 90 fL (79-100); MONO # 0.6 x10^3/uL (0.0-1.1); MONO % 8 % (0-9); NEUT # 6.3 x10^3/uL (1.8-7.7); NEUT % 79 % (31-73); PLATELET COUNT 231 x10^3/uL (140-400); RED BLOOD COUNT 4.66 x10^6/uL (3.50-5.40)
[2021-04-23 23:59] LABS: BARBITURATES NEG (NEG); BENZODIAZEPINES NEG (NEG); CANNABINOIDS POS (NEG); COCAINE NEG (NEG); METHADONE NEG (NEG); OPIATES NEG (NEG); PHENCYCLIDINE NEG (NEG)
[2021-04-24 00:01] LABS: AMPHETAMINE/METHAMPHETAMINE NEG (NEG)
[2021-04-24 00:11] LABS: BILIRUBIN,URINE NEGATIVE (NEG); CLARITY,URINE CLEAR; COLOR,URINE YELLOW; NITRITE,URINE NEGATIVE (NEG); PH,URINE 6.5 (<5.0-8.0); PROTEIN,URINE NEGATIVE (NEG-TRACE)
[2021-04-24 00:12] LABS: CALCIUM 8.3 mg/dL (8.5-10.1); CREATININE 0.9 mg/dL (0.6-1.0); GFR 90.9; POTASSIUM 3.4 mmol/L (3.5-5.1)
[2021-04-24 00:13] LABS: BACTERIA,URINE FEW /HPF (0-FEW)
[2021-04-24 00:19] LABS: ALBUMIN 4.1 g/dL (3.4-5.0); ALBUMIN/GLOBULIN RATIO 1.2 (1.0-1.7); MAGNESIUM 1.6 mg/dL (1.8-2.4); TOTAL BILIRUBIN 0.6 mg/dL (0.2-1.0); TOTAL PROTEIN 7.4 g/dL (6.4-8.2)
--- NOTE | 2021-04-24 00:48 | RAD ---
EXAM: CT thoracic spine without contrast INDICATION: Mid back pain COMPARISON: None TECHNIQUE: Axial CT imaging through thoracic spine without intravenous contrast. Sagittal and coronal reformats were obtained. One or more of the following individualized dose reduction techniques were utilized for this examinat ion: 1. Automated exposure control 2. Adjustment of the mA and/or kV according to patient size 3. Use of iterative reconstruction technique. FINDINGS: No acute fracture. Alignment is normal. Disc spaces and facet joints are normal. Paraspinous soft tis sues normal. There is a tiny left pneumothorax at the medial apex. Minimal paraseptal emphysema. IMPRESSION: 1. No acute osseous abnormality of the thoracic spine. 2. Tiny left pneumothorax. 3. Minimal paraseptal emphysema in the lungs. Electronically signed by: Viki Bajwa MD (04/24/2021 12:45 AM) [facility]IS MIGUELMARICRU[facility]
--- NOTE | 2021-04-24 01:10 | RAD ---
EXAM: XR CHEST 1V 04/23/2021 11:46 PM CLINICAL INDICATION: Chest heaviness COMPARISON: CT thoracic spine 04/23/2021 and chest radiograph 10/25/2017 TECHNIQUE: AP upright view of the chest FINDINGS: The heart is normal in size. Lungs are well-expanded and clear. There is no consolidation or pleural effusion. A tiny left medial apical pneumothorax seen on CT the thoracic spine is not well seen by radiograph. IMPRESSION: 1. No acute cardiopulmonary abnormality. 2. The tiny left medial apical pneumothorax seen on CT thoracic spine from the same day is not well s een by radiograph. Electronically signed by: Viki Bajwa MD (04/24/2021 1:08 AM) [facility]
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
[2021-04-24] MEDS ORDERED: ONDANSETRON PF 4 MG/2 ML VIAL. IVP PRN (02:00)
[2021-04-24] MEDS ORDERED: fentaNYL PF VIAL 100 MCG/2 ML VIAL IVP PRN (02:00)
[2021-04-24] MEDS ORDERED: fentaNYL PF VIAL 100 MCG/2 ML VIAL IVP ONE (02:00)
[2021-04-24] MEDS: ACETAMINOPHEN 325 MG TABLET. PO PRN ×2 (02:27→08:34)
[2021-04-24 03:01] LABS: INFLUENZA A PATIENT NEGATIVE (NEGATIVE); INFLUENZA B PATIENT NEGATIVE (NEGATIVE)
[2021-04-24 03:15] VITALS: BP 140/89
--- NOTE | 2021-04-24 04:00 | NUR ---
The patient, DAISY LEON, 25 y/o, F admitted by TIFF BOWEN MD, was given written information regarding hospital policies, unit procedures and contact persons. Valuable were checked and documented. call light in reach, will cont to monitor pt status and safety. pmrn
--- NOTE | 2021-04-24 05:54 | EKG ---
[facility] [address] [place] [address] Test Date: 2021-04-23 Test Time: 23:41:18 Pat Name: DAISY LEON Department: Room: [facility] Gender: F Clinical Quality Analyst: : 1995 Requested By: TRAN RECINOS Order Number: [id number] Reading MD: Travis Sanders MD Measurements Intervals [place] Rate: 93 P: 73 TN: 148 QRS: 91 QRSD: 78 T: 43 QT: 266 QTc: 333 Interpretive Statements SINUS ARRHYTHMIA Electronically Signed On 04-29-2021 11:27:16 CONTRACT CLERK [employer] by Travis Sanders MD
[2021-04-24] MEDS ORDERED: POTASSIUM CHLORIDE 20 MEQ TABLET.ER. PO ONE (06:00)
[2021-04-24] MEDS ORDERED: MAGNESIUM SULFATE 2GM 50 ML IV ONE (06:00)
[2021-04-24 07:00] VITALS: BP 118/75
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
--- NOTE | 2021-04-24 11:33 | RAD ---
XR CHEST 1V History: Pneumothorax follow-up Comparison: 04/23/2021, CT 04/23/2021 Technique: Portable AP radiograph of the chest. Findings: The lungs are adequately and symmetrically inflated. No airspace consolidation or pleural effusion. N o pneumothorax is appreciated. Osseous structures and soft tissues are unremarkable. Cardiac silhouet te and pulmonary vasculature are within normal limits. Impression: 1. No pneumothorax appreciated by radiograph. Electronically signed by: Angel Christopher MD (04/24/2021 11:31 AM) [id number]
--- NOTE | 2021-04-24 11:43 | NUR ---
SS following for discharge planning. SS reviewed pt chart and discussed with pt RN. Pt is from home and is currently on room air. PO diet. COVID19 negative. Pulmonology following. Discharge order on the chart for home with self care.
--- NOTE | 2021-04-24 14:23 | NUR ---
Discharge Note: DAISY LEON Discharge instructions and discharge home medications reviewed with Patient and a copy given. All questions have been answered and understanding verbalized.
== END 2021-04-24 14:05 | disposition home or self-care (01) ==
LOC: ER 22:24 → INTOOBSV 04-24 02:42 → 6 SOUTH 04-24 02:42
PROVIDERS: ADMIT Internal Medicine; ATTEND Internal Medicine
DX: J93.83 Other pneumothorax (principal); Z20.822 Contact with and (suspected) exposure to COVID-19; J45.909 Unspecified asthma, uncomplicated; R07.89 Other chest pain; M54.6 Pain in thoracic spine; R06.02 Shortness of breath; R01.1 Cardiac murmur, unspecified; F12.90 Cannabis use, unspecified, uncomplicated; Z85.41 Personal history of malignant neoplasm of cervix uteri; Z87.891 Personal history of nicotine dependence; Z79.899 Other long term (current) drug therapy; Z98.890 Other specified postprocedural states; W19.XXXA Unspecified fall, initial encounter; Y92.89 Other specified places as the place of occurrence of the external cause; Y93.89 Activity, other specified; Y99.8 Other external cause status
CPT/HCPCS: 36415; 71045; 72128; 80053; 80307; 81001; 81025; 83735; 83880; 84484; 85025; 85379; 87428; 93005; 96361; 96365; 96366; 96375; 99285; G0378; G0480; J2270; J3475; J7030; U0003; G0379